=== PATIENT | male | born 1990 | race Two or more races ===

== ENCOUNTER 2021-11-01 07:02 | Emergency (ER) | payer SELFPAY | END 2021-11-01 08:18 | disposition left against medical advice (07) | LOC: ER 07:02 | DX: S50.862A Insect bite (nonvenomous) of left forearm, initial encounter (principal); Z53.21 Procedure and treatment not carried out due to patient leaving prior to being seen by health care provider; W57.XXXA Bitten or stung by nonvenomous insect and other nonvenomous arthropods, initial encounter; Y93.89 Activity, other specified; Y92.9 Unspecified place or not applicable; Y99.8 Other external cause status ==

== ENCOUNTER 2022-10-11 18:58 | Emergency (ER) | payer MEDICAID, OTHER ==
[~2022-10-11] VITALS: Ht 188 cm; Wt 190.0 kg
[2022-10-11 19:10] VITALS: BP 128/82
== END 2022-10-11 20:04 | disposition left against medical advice (07) ==
LOC: ER 18:58
DX: M79.5 Residual foreign body in soft tissue (principal); Z53.21 Procedure and treatment not carried out due to patient leaving prior to being seen by health care provider

== ENCOUNTER 2022-11-30 22:37 | Emergency (ER) | payer MEDICAID ==
[~2022-11-30] VITALS: Ht 188 cm; Wt 95.0 kg
[2022-11-30] MEDS ORDERED: CLIN300C70 PO (22:57)
[2022-11-30] MEDS ORDERED: IBUP1TAB5 PO (22:57)
[2022-11-30] MEDS ORDERED: MUPI2OIN2 EX (22:57)
[2022-11-30] MEDS ORDERED: NEOMYCIN-BACITRACIN-POLYM UNITDOSE PKG TOP OINT TOP ONE (23:00)
[2022-11-30] MEDS ORDERED: HYDROcodone-ACET 5/325MG TAB PO ONE (23:00)
[2022-11-30] MEDS ORDERED: TETANUS-DIPTH-ACEL PERTUSSIS 0.5ML SYR Tdap IM ONE (23:00)
[2022-11-30] MEDS ORDERED: cefTRIAXone SOD 1,000 MG VL IM ONE (23:00)
[2022-12-01 00:36] VITALS: BP 105/65; PULSE 94; RESP 18; TEMP 98; O2SAT 96
== END 2022-12-01 00:36 | disposition home or self-care (01) ==
LOC: ER 22:43
DX: S61.411A Laceration without foreign body of right hand, initial encounter (principal); B96.89 Other specified bacterial agents as the cause of diseases classified elsewhere; W25.XXXA Contact with sharp glass, initial encounter; Y93.89 Activity, other specified; Y92.89 Other specified places as the place of occurrence of the external cause; Y99.8 Other external cause status
CPT/HCPCS: 90471; 90715; 96372; 99284; J0696

== ENCOUNTER 2024-01-17 05:58 | Emergency (ER) | payer MEDICAID ==
[~2024-01-17] VITALS: Ht 188 cm; Wt 93.9 kg
[~2024-01-17 05:58] MED LIST: CLIN1CAP70 PO; IBUP1TAB5 PO; MUPI2OIN2 EX
[2024-01-17 07:53] VITALS: BP 127/86; PULSE 89; RESP 15; TEMP 98.6; O2SAT 100
== END 2024-01-17 08:27 | disposition left against medical advice (07) ==
LOC: ER 05:58
DX: K08.89 Other specified disorders of teeth and supporting structures (principal); Z53.21 Procedure and treatment not carried out due to patient leaving prior to being seen by health care provider

== ENCOUNTER 2024-11-08 21:51 | Emergency (ER) | payer SELFPAY ==
[~2024-11-08] VITALS: Ht 190.5 cm; Wt 100.0 kg
[2024-11-08] MEDS ORDERED: NALOXONE HCL 0.4 MG/ML VIAL IM ONE (22:15)
--- NOTE | 2024-11-08 22:23 | ED.PDOC ---
History of Present Illness HPI Comments 34-year-old male with no significant past medical history presents to the ED with a chief complaint of a drug overdose, of an unknown amount of gabapentin. Patient states that he was hanging out drinking with a friend yesterday, and was given a pill. Patient reports he woke up to a certain using Narcan on him. Patient reports of lethargic, nausea, vomiting, headache, right conjunctival hemorrhage and diaphoresis today. All vitals sides noted to be stable, respiratory rate is even and unlabored, patient is currently sat 97% SpO2 room air. Patient was noted to have difficulty to remained awake during triage assessment. Patient denies any diarrhea, abdominal pain, dysuria, hematuria, or any other associated symptoms, modifying factors at this time. PHYSICAL EXAM: General: Awake, alert and oriented. No acute distress. Skin: Skin in warm, dry and intact. Appropriate color for ethnicity. HEENT: The head is normocephalic and atraumatic. Right eye conjunctival hemorrhage. Sclera is non-icteric. EOM are intact. No signs of nystagmus. Eyelids are normal in appearance without swelling or lesions. Oral mucosa is pink and moist Neck: The neck is supple with normal range of motion. No JVD. Cardiac: Heart rate and rhythm are normal. No murmurs, gallops, or rubs are auscultated. Respiratory: No signs of respiratory distress. Lung sounds are clear in all lobes bilaterally without rales, rhonchi, or wheezes. Abdominal: Abdomen is soft, non-tender without distention, guarding or rigidity. Bowel sounds are present and normoactive in all four quadrants. Extremities: Upper and lower extremities are atraumatic in appearance without deformity or edema. Neurological: The patient is awake, alert and oriented to person, place, and time with normal speech. Speech is clear. There is no facial asymmetry. Psychiatric: Appropriate mood and affect. Good judgement and insight. REVIEW OF SYSTEMS: General: No fever, no chills, or fatigue HEENT: No sore throat, no earache, no congestion, no neck pain. Cardiac: No chest pain. No palpitations. Lungs: No shortness of breath, no cough. GI: No nausea, no vomiting, no diarrhea, no constipation, no abdominal pain : No dysuria, frequency, or urgency. No hematuria. Musculoskeletal: No joint pain , no joint swelling, no extremity edema. Skin: No rash, no itching. Neuro: + headache, no dizziness, no weakness Chief Complaint: Overdose Time Seen by MD: 22:08 Reviewed Notes: Nurses Notes, Medications, Allergies Allergies: Coded Allergies: NO KNOWN ALLERGIES (Unverified , 11/30/22) Home Meds Active Scripts Ibuprofen Micronized (Ibuprofen) 600 Mg Tab, 1 TAB PO Q6HR, #20 TAB as needed for pain Prov:BEAU LYONSA Q PROGRAM CONTROL ANALYST 11/30/22 Mupirocin (Pseudomonas Fluores (Mupirocin) 2 % Oin, 1 APPLIC EX TID for 10 Days, #15 MG apply to the affected area Prov:BEAU LYONSA Q PROGRAM CONTROL ANALYST 11/30/22 Clindamycin Hcl (Clindamycin Hcl) 300 Mg Cap, 1 CAP PO QID for 10 Days, #40 CAP Prov:BEAU LYONSA Q PROGRAM CONTROL ANALYST 11/30/22 Information Source: Patient, Friend Mode of Arrival: Ambulatory Severity: Moderate Timing: Hours Duration: Since onset, Hours Prehospital treatment: None Past Medical History PAST MEDICAL HISTORY: Denies Surgical History: Denies all surgeries Family History Family History: Unknown Social History Smoker: Non-Smoker Alcohol: Denies ETOH Use Drugs: Other Lives In: Home Was a procedure done? Was a procedure done?: No EKG EKG : Pulse Rate (adult): 84 Aline: Normal Cardiac Rhythm: NSR Block: None Hypertrophy: None ST: Normal EKG EKG : Pulse Rate (adult): 67 Aline: LAD Cardiac Rhythm: NSR Block: None Hypertrophy: None ST: Normal Differential Dx Considerations may include: Drug overdose, respiratory distress, lethargic X-Ray, Labs, Meds, VS Vital Signs Date Time Temp Pulse Resp B/P (MAP) Pulse Ox O2 Delivery O2 Flow Rate FiO2 11/09/24 02:19 67 11/09/24 02:14 67 11/09/24 00:29 92 18 98 Room Air* 0 21 11/09/24 00:29 97.4 92 18 119/82 (94) 98 97.4 11/08/24 22:23 84 11/08/24 22:04 84 11/08/24 21:54 98.1 99 14 125/80 97 98.1 Lab Test 11/09/24 02:00 11/08/24 22:22 11/08/24 22:01 Range/Units Urine Opiates Screen Neg NEGATIVE Urine Fentanyl Screen Neg NEGATIVE Urine Barbiturates Screen Neg NEGATIVE Urine Phencyclidine Screen Neg NEGATIVE Urine Amphetamines Screen Pos NEGATIVE Urine Benzodiazepines Screen Neg NEGATIVE Urine Cocaine Screen Neg NEGATIVE Urine Cannabinoids Screen Neg NEGATIVE White Blood Count 6.3 4.4-10.8 10^3/uL Red Blood Count 5.49 4.5-5.90 10^6/uL Hemoglobin 16.0 13.5-17.5 g/dL Hematocrit 46.0 41.0-53.0 % Mean Corpuscular Volume 83.9 80.0-100.0 fL Mean Corpuscular Hemoglobin 29.2 28.0-32.0 pg Mean Corpuscular Hemoglobin Concent 34.9 32.0-36.0 g/dL Red Cell Distribution Width 13.5 11.8-14.3 % Platelet Count 237 140-450 10^3/uL Mean Platelet Volume 7.7 6.9-10.8 fL Neutrophils (%) (Auto) 61.7 37.0-80.0 % Lymphocytes (%) (Auto) 25.2 10.0-50.0 % Monocytes (%) (Auto) 8.5 0.0-12.0 % Eosinophils (%) (Auto) 4.1 0.0-7.0 % Basophils (%) (Auto) 0.5 0.0-2.0 % Neutrophils # (Auto) 3.9 1.6-8.6 10 ^3/uL Lymphocytes # (Auto) 1.6 0.4-5.4 10 ^3/uL Monocytes # (Auto) 0.5 0-1.3 10 ^3/uL Eosinophils # (Auto) 0.3 0-0.8 10 ^3/uL Basophils # (Auto) 0 0-0.2 10 ^3/uL Nucleated Red Blood Cells 0.1 % Sodium Level 142 136-145 mmol/L Potassium Level 4.3 3.5-5.1 mmol/L Chloride Level 105 98-107 mmol/L Carbon Dioxide Level 30 20-31 mmol/L Anion Gap 7 5-15 Blood Urea Nitrogen 16 9-23 mg/dL Creatinine 1.41 H 0.700-1.30 mg/dL Glomerular Filtration Rate Calc 67 >90 mL/min BUN/Creatinine Ratio 11.3 10.0-20.0 Serum Glucose 106 74-106 mg/dL Calcium Level 9.5 8.7-10.4 mg/dL Plasma/Serum Blood Alcohol 3.6 <10 mg/dL POC Glucose 109 H 70-106 mg/dl Current Medications Medications (Trade) Dose Ordered Sig/Brock Route Start Time Stop Time Status Last Admin Ketorolac Tromethamine (Toradol Injection) 30 mg ONCE ONCE IM 11/08/24 22:30 11/08/24 22:31 DC 11/09/24 00:29 Ondansetron HCl (Zofran) 4 mg ONCE ONCE IM 11/08/24 22:30 11/08/24 22:31 DC 11/09/24 00:28 Sodium Chloride 1,000 ml @ 1,000 mls/hr Q1H ONCE IV 11/09/24 00:00 11/09/24 00:59 DC 11/09/24 00:28 PATIENT: ANTONELLA CHIRINOS ACCT: [id number] UNIT: [id number] : 1990 LOC: ER ROOM / BED: / AGE / SEX: 34 / M ADM STATUS: REG ER SERVICE 21 ORDERING PHYSICIAN: RHIANNA CARRERA MD PROCEDURE(s): HWOCT - HEAD WITHOUT CONTRAST REASON: AMS, suspected head injury ORDER NUMBER(s): [id number], ACCESSION NUMBER(s): [id number] EXAM: CT HEAD WITHOUT CONTRAST INDICATION: AMS, suspected head injury TECHNIQUE: CT of the head without intravenous contrast. Radiation Dose Information: CT Dose: CTDI volume is 62.28 mGy. Dose-length product is 1351.73 mGy*cm The dose indicators for CT are the volume Computed Tomography (CT) Dose Index (CTDIvol) and the Dose Length Product (DLP), and are measured in units of mGy and mGy-cm, respectively. These indicators are not patient dose, but values generated from the CT scanner acquisition factors. The report includes radiation exposure data for exposures received during this examination. COMPARISON: None FINDINGS: There is no evidence of acute intracranial hemorrhage, extra-axial collection, mass effect, midline shift, herniation or hydrocephalus. The ventricles, sulci and cisterns are age appropriate. The reilly-white differentiation is intact. Patchy periventricular and subcortical white matter hypoattenuation is nonspecific but may be related to small vessel ischemic disease. The visualized paranasal sinuses and mastoid air cells are clear. The surrounding soft tissues and osseous structures are unremarkable. IMPRESSION: 1. No acute intracranial abnormality. Time of 1ST Reevaluation: 10:38 Reevaluation 1ST: Unchanged Patient Education/Counseling: Diagnosis, Treatment, Need For Follow Up Family Education/Counseling: No Family Present SEPSIS Sepsis Screen Date sepsis recognized/suspect: Nov 08, 2024 Time Sepsis recognized/suspect: 2153 Recent Procedure: No On Antibiotic Therapy: No Respiratory Rate >20: No Heart Rate >90: No Temp<36 C (96.8 F) or >38.3 C: No SBP <90 or MAP <65 mmHG: No New Acute Mental Status Change: No Is the patient on CPAP, BIPAP,: No Physician Orders Vital Signs Q1HR (11/08/24 22:07) Electrocardigram (11/08/24 22:17) Electrocardigram (11/08/24 23:17) Electrocardigram (11/09/24 01:17) Head Without Contrast (11/08/24 22:22) Vital Signs Date Time Temp Pulse Resp B/P (MAP) Pulse Ox O2 Delivery O2 Flow Rate FiO2 11/09/24 02:19 67 11/09/24 02:14 67 11/09/24 00:29 92 18 98 Room Air* 0 21 11/09/24 00:29 97.4 92 18 119/82 (94) 98 97.4 11/08/24 22:23 84 11/08/24 22:04 84 11/08/24 21:54 98.1 99 14 125/80 97 98.1 Laboratory Tests Test 11/08/24 22:22 White Blood Count 6.3 10^3/uL (4.4-10.8) Medications Medications Dose Ordered Sig/Brock Route Start Time Stop Time Status Last Admin Dose Admin Ketorolac Tromethamine 30 mg ONCE ONCE IM 11/08/24 22:30 11/08/24 22:31 DC 11/09/24 00:29 Ondansetron HCl 4 mg ONCE ONCE IM 11/08/24 22:30 11/08/24 22:31 DC 11/09/24 00:28 Sodium Chloride 1,000 ml @ 1,000 mls/hr Q1H ONCE IV 11/09/24 00:00 11/09/24 00:59 DC 11/09/24 00:28 Departure 1 Departure Time of Disposition: 02:57 Impression: Primary Impression: Altered mental status Additional Impression: Drug intoxication Disposition: LEFT AWOL/ELOPED Condition: Other Comments Patient eloped from the ED prior to receiving results of tox screen Critical Care Note Critical Care Time?: No Stability Stability form required: No Heart Score Heart Score: Heart Score Response (Comments) Value History N/A 0 EKG N/A 0 Age N/A 0 Risk Factors N/A 0 Troponin N/A 0 Total 0 I personally scribed for RHIANNA CARRERA MD ([email or web address]) on 11/08/24 at 22:23. Electronically submitted by Balbir Gore ([email or web address]). I personally scribed for RHIANNA CARRERA MD ([email or web address]) on 11/08/24 at 22:23. Electronically submitted by Balbir Gore ([email or web address]). I personally scribed for RHIANNA CARRERA MD ([email or web address]) on 11/08/24 at 23:27. Electronically submitted by Balbir Gore ([email or web address]). I personally scribed for RHIANNA CARRERA MD ([email or web address]) on 11/09/24 at 02:19. Electronically submitted by Balbir Gore ([email or web address]). RHIANNA CARRERA MD Nov 08, 2024 22:23
[2024-11-08 22:39] LABS: Hematocrit 46.0 % (41.0-53.0); Hemoglobin 16.0 g/dL (13.5-17.5); Mean Corpuscular Hemoglobin 29.2 pg (28.0-32.0); Mean Corpuscular Volume 83.9 fL (80.0-100.0); Nucleated Red Blood Cells % 0.1 %
--- NOTE | 2024-11-08 22:44 | DVH ---
EXAM: CT HEAD WITHOUT CONTRAST INDICATION: AMS, suspected head injury TECHNIQUE: CT of the head without intravenous contrast. Radiation Dose Information: CT Dose: CTDI volume is 62.28 mGy. Dose-length product is 1351.73 mGy*cm The dose indicators for CT are the volume Computed Tomography (CT) Dose Index (CTDIvol) and the Dose Length Product (DLP), and are measured in units of mGy and mGy-cm, respectively. These indicators are not patient dose, but values generated from the CT scanner acquisition factors. The report includes radiation exposure data for exposures received during this examination. COMPARISON: None FINDINGS: There is no evidence of acute intracranial hemorrhage, extra-axial collection, mass effect, midline s hift, herniation or hydrocephalus. The ventricles, sulci and cisterns are age appropriate. The reilly-white differentiation is intact. Patchy periventricular and subcortical white matter hypoattenuation is nonspecific but may be related to small vessel ischemic disease. The visualized paranasal sinuses and mastoid air cells are clear. The surrounding soft tissues and osseous structures are unremarkable. IMPRESSION: 1. No acute intracranial abnormality.
[2024-11-08 22:49] LABS: Chloride 105 mmol/L (98-107); Potassium 4.3 mmol/L (3.5-5.1); Sodium 142 mmol/L (136-145)
[2024-11-08 22:50] LABS: Anion Gap 7 (5-15); Carbon Dioxide 30 mmol/L (20-31)
[2024-11-08 22:51] LABS: Calcium 9.5 mg/dL (8.7-10.4)
[2024-11-08 22:55] LABS: BUN/Creatinine Ratio 11.3 (10.0-20.0); Blood Urea Nitrogen 16 mg/dL (9-23); Glucose 106 mg/dL (74-106)
[2024-11-09] MEDS: SODIUM CHLORIDE 0.9% 1,000 ML IV ONE (00:28)
[2024-11-09] MEDS: ONDANSETRON HCL 4 MG/2 ML VIAL IM ONE (00:28)
[2024-11-09 00:29] VITALS: BP 119/82; PULSE 92; RESP 18; TEMP 97.4; O2SAT 98
[2024-11-09] MEDS: KETOROLAC TROMETH 30 MG/ML 1ML VIAL IM ONE (00:29)
[2024-11-09 02:19] VITALS: PULSE 67
[2024-11-09 02:26] LABS: Phencyclidine Screen, Urine Neg (NEGATIVE)
[2024-11-09 02:56] LABS: Amphetamine Screen, Urine Pos (NEGATIVE); Barbiturate Scree,Urine Neg (NEGATIVE); Benzodiazephine Screen, Urine Neg (NEGATIVE); Cannabinoid Screen, Urine Neg (NEGATIVE); Cocaine Screen, Urine Neg (NEGATIVE); Opiate Scree,Urine Neg (NEGATIVE)
--- NOTE | 2024-11-10 14:58 | ECG ---
[facility] Test Date: 2024-11-08 Test Time: 22:04:39 Pat Name: ANTONELLA CHIRINOS Department: ED Room: Gender: M Wine Steward/Stewardess: LORI : 1990 Requested By: RHIANNA CARRERA Order Number: [id number] Reading MD: Antonella Jarvis Measurements Intervals [place] Rate: 84 P: 77 TN: 153 QRS: 91 QRSD: 91 T: 52 QT: 372 QTc: 440 Interpretive Statements Sinus rhythm Borderline right axis deviation Electronically Signed On 11-13-2024 17:58:51 PDT by Antonella Jarvis Please click the below link to view image of tracing.
--- NOTE | 2024-11-13 09:13 | ECG ---
[facility] Test Date: 2024-11-09 Test Time: 02:14:39 Pat Name: ANTONELLA CHIRINOS Department: Room: Gender: M Service Operations Manager: samy : 1990 Requested By: RHIANNA CARRERA Order Number: [id number] Reading MD: Antonella Jarvis Measurements Intervals [place] Rate: 67 P: 35 [place]: 152 QRS: 104 QRSD: 93 T: 50 QT: 409 QTc: 432 Interpretive Statements Sinus rhythm Right axis deviation Low voltage, precordial leads Electronically Signed On 11-13-2024 18:03:27 PDT by Antonella Jarvis Please click the below link to view image of tracing.
== END 2024-11-09 02:13 | disposition left against medical advice (07) ==
LOC: ER 21:51
DX: R41.82 Altered mental status, unspecified (principal); T42.6X5A Adverse effect of other antiepileptic and sedative-hypnotic drugs, initial encounter; R11.2 Nausea with vomiting, unspecified; Z79.899 Other long term (current) drug therapy; Y92.89 Other specified places as the place of occurrence of the external cause
CPT/HCPCS: 36415; 70450; 80048; 80307; 80320; 82947; 85025; 93005; 96360; 96372; 99285; J1885; J2405; J7030; 82962; 96361